=== PATIENT | female | born 1990 | race African-American/Black ===

== ENCOUNTER 2025-06-16 06:59 | Emergency (ER) | payer OTHER, SELFPAY ==
--- NOTE | ~2025-06-16 | XR_ITS ---
Examination: XR chest 1V portable Clinical History: cp Comparison: None Technique: Portable AP Findings: Heart size enlarged. Lungs clear. No acute bony abnormality. IMPRESSION: 1. Cardiac silhouette enlarged. 2. Lungs clear. Reviewed, dictated and finalized at location R. [facility] [employer]
--- NOTE | 2025-06-16 07:04 | ECG_ITS ---
Test Date: 2025-06-16 07:09:34 Measurements Intervals [place] Rate: 103 P: 50 FL: 179 QRS: 28 QRSD: 102 T: 7 QT: 334 QTc: 438 Interpretive Statements SINUS TACHYCARDIA ABNORMAL RHYTHM ECG No previous ECG available for comparison Electronically Signed On 06-16-2025 17:55:31 METAPHYSICIST by Damon Castillo M.D.
[2025-06-16 07:05] VITALS: BP 158/93; PULSE 116; RESP 17; TEMP 36.9; O2SAT 100
[2025-06-16 07:10] VITALS: PULSE 116
--- NOTE | 2025-06-16 07:14 | ED_ITS ---
HPI - Chest Pain General Chief Complaint: Chest Pain Stated Complaint: CHEST PAIN X3D Time Seen by Provider: 06/16/25 07:06 History of Present Illness HPI narrative: Pt presents with pressure in anterior chest since about 0300. Pt says she had had intermittent pain in her anterior chest for 3 days. Pt has had some nausea associated she believes with starting monjaro. Pt denies SOB. POt denies precip or relieving factors. Pt says the discomfort is 1-2/10 now. Related Data Allergies Allergy/AdvReac Type Severity Reaction Status Date / Time No Known Allergies Allergy Verified 06/16/25 07:00 Review of Systems 2 Review of Systems: All systems reviewed & are unremarkable except as noted in HPI and below Exam 2 Const: General: healthy appearing, no acute distress and alert Nutritional Appearance: obese Orientation/consciousness: patient oriented x3 L imitations: no limitations Neck: Neck: normal visual inspection Chest: Chest palpation & inspection: tenderness costochondral junction Resp: Effort & Inspection: normal respiratory effort Auscultation: clear to auscultation bilaterally Cardio: Rate: tachycardic Rhythm: regular rhythm GI: GI Palp: Yes Soft to palpation and No Tenderness to palpation present (GI) Auscultation: normal bowel sounds Skin: General skin exam: normal color Rashes: no rashes Wounds: no wounds Neuro: General: patient oriented x3, moves all extremities, no meningeal signs and no focal motor deficits Extrem: General: normal to inspection and no clubbing, cyanosis or edema Psych: Mental Status: mental status grossly normal Affect: normal affect Attitude: cooperative Course Vital Signs Vital signs: Vital Signs Temperature 98.4 F 06/16/25 07:05 Pulse Rate 116 H 06/16/25 07:05 Respiratory Rate 17 06/16/25 07:05 Blood Pressure 158/93 H 06/16/25 07:05 Pulse Oximetry 100 06/16/25 07:05 Oxygen Delivery Room Air 06/16/25 07:05 Temperature 98.4 F 06/16/25 07:05 Pulse Rate 84 06/16/25 09:33 Respiratory Rate 16 06/16/25 09:33 Blood Pressure 142/80 H 06/16/25 09:33 Pulse Oximetry 100 06/16/25 09:33 Oxygen Delivery Room Air 06/16/25 07:15 MDM - Chest Pain MDM Narrative Medical decision making narrative: since pain present for 4 hours should be able to rule out acs with 1 trop. ekg unremarkable. will give a dose of oradol for pain which is reproducible with palpation. ekg and trop and labs and cxr unremarkable./ Pt got some relief from toradol. home on naprosyn Differential Diagnosis Differential diagnosis: Likely pneumothorax, unstable angina pectoris, atypical chest pain, st elevation myocardial infarction, costochondritis and biliary colic Lab Data 06/16/25 07:41 06/16/25 07:41 Labs: Lab Results 06/16/25 Range/Units 07:41 WBC 7.6 (4.5-10.0) K/mm3 RBC 4.93 (4.2-5.4) M/mm3 Hgb 13.2 (12.0-15.0) g/dL Hct 41.0 (37.0-47.0) % MCV 83.2 (80-100) fl MCH 26.8 (26-34) pg MCHC 32.2 (32-36) g/dl RDW 13.7 (11.5-14.5) % Plt Count 245 (150-375) k/mm3 MPV 9.8 (7.4-10.4) fl Immature Gran % (Auto) 4.2 H (0-0.5) % Neut % (Auto) 57.6 (45.5-73.1) % Lymph % (Auto) 32.1 (18.3-44.2) % [place] % (Auto) 5.3 (2.6-8.5) % Eos % (Auto) 0.4 (0-4.4) % Baso % (Auto) 0.4 (0.2-1.2) % Lymph # (Auto) 2.44 (0.9-3.2) K/mm3 [place] # (Auto) 0.4 (0.1-0.6) K/mm3 Eos # (Auto) 0.0 (0-0.3) K/mm3 Baso # (Auto) 0.0 (0.0-0.1) K/mm3 Abs Immat Gran (auto) 0.32 H (0.00-0.031) K/mm3 Absolute Neuts (auto) 4.4 (1.3-6.7) K/mm3 Absolute Nucleated RBC 0.000 (0.0-0.012) K/mm3 Nucleated RBC % 0.0 (0.0-0.2) % PT 14.3 (11.1-14.7) Seconds INR 1.1 APTT 24.6 (22.3-36.8) Seconds Sodium 135 L (137-145) mmol/L Potassium 4.4 (3.4-5.0) mmol/L Chloride 103 (98-107) mmol/L Carbon Dioxide 25 (22-30) mmol/L Anion Gap 7 (4-12) mmol/L BUN 11 (7-17) mg/dL Creatinine 0.76 (0.7-1.0) mg/dL Estim Creat Clear Calc 146 ml/min Estimated GFR > 60 (59 - ) Glucose 107 (65-110) mg/dL Calcium 9.0 (8.4-10.2) mg/dL Total Bilirubin 0.6 (0.2-1.3) mg/dL AST 37 H (14-36) U/L ALT 25 (6-35) U/L Alkaline Phosphatase 74 (38-126) U/L Troponin I < 0.012 (0.000-0.034) ng/mL Total Protein 8.4 H (6.3-8.2) g/dL Albumin 4.5 (3.5-5.1) g/dL Lipase 86 (23-300) U/L Imaging Data Attestation: I personally reviewed and interpreted this imaging study as follows: My impression: nad Radiologist's impression: [place] [address] [place] [address] XRay Report Signed Patient: Bienvenido Roy : 1990 MR#: [id number] Age: 35 Acct:[id number] Loc: [facility] ADM Date: 06/16/[address]: Ordering Physician: Angie Paz III, DO Date of Service: 06/16/25 Procedure(s): XR chest 1V portable Accession Number(s): [id number] cc: Angie Paz III, ~ Examination: XR chest 1V portable Clinical History: cp Comparison: None Technique: Portable AP Findings: Heart size enlarged. Lungs clear. No acute bony abnormality. IMPRESSION: 1. Cardiac silhouette enlarged. 2. Lungs clear. Reviewed, dictated and finalized at location R. CURIST Please be advised this is a medical document. It is intended for [id number] communication. It is written in medical language and may contain unfamiliar abbreviations or verbiage. Medical documents are intended to carry relevant information, facts as evident, and the clinical opinion of the practitioner at the time of the encounter. This report may have been done utilizing a voice recognition system. Attempts have been made to correct errors. However, there may be uncorrected grammatical, spelling, and recognition errors present. The file time of this note does not necessarily represent the time of service. Dictated By: Jorge A Stock MD 06/16/25 0727 Signed By: <Electronically signed by Jorge A Stock MD in [place]> ECG Data EKG #1: Attestation: I personally reviewed and interpreted this ECG as follows: Interpretation: nl axis no st or t wave changes EKG Interpretation: tachycardia (rate 103) Discharge Plan Discharge Clinical Impression: Costalchondritis Patient Disposition: Home Condition: Improved Instructions: Antibiotic Form, Chest Wall Pain (ED) Patient Language: [place] Prescriptions: New naproxen [Naprosyn] 500 mg tablet 500 mg PO BID Qty: 20 0RF Follow-up/Referrals: UNKNOWN,DOCTOR [Non-Staff] Quality HEART score for chest pain patients History: slightly suspicious ECG: normal Age: < or = to 45 years Risk factors: 1 or 2 risk factors Troponin: < or = to 1x normal limit Heart score: 1
[2025-06-16 07:15] VITALS: O2SAT 100
[2025-06-16 07:38] VITALS: BP 158/93; PULSE 88; RESP 12; O2SAT 100
[2025-06-16] MEDS: KETOROLAC 15 MG/ML VIAL (*BKC) IV PUSH (07:44)
[2025-06-16 07:49] LABS: Hematocrit 41.0 % (37.0-47.0); Hemoglobin 13.2 g/dL (12.0-15.0); Immature Granulocyte Percent A 4.2 % (0-0.5); Lymphocytes Absolute Auto 2.44 K/mm3 (0.9-3.2); Mean Corpuscular HGB Conc 32.2 g/dl (32-36); Mean Corpuscular Hemoglobin 26.8 pg (26-34); Mean Corpuscular Volume 83.2 fl (80-100); Nucleated Red Blood Cells Absolute Auto 0.000 K/mm3 (0.0-0.012); Nucleated Red Blood Cells Perc 0.0 % (0.0-0.2); Platelet Count Result 245 k/mm3 (150-375); Red Blood Count 4.93 M/mm3 (4.2-5.4); White Blood Count 7.6 K/mm3 (4.5-10.0)
[2025-06-16 08:04] LABS: INR 1.1; Prothrombin Time 14.3 Seconds (11.1-14.7)
[2025-06-16 08:05] LABS: Alanine Aminotransferase 25 U/L (6-35); Albumin Level 4.5 g/dL (3.5-5.1); Alkaline Phosphatase 74 U/L (38-126); Anion Gap 7 mmol/L (4-12); Aspartate Amino Transferase 37 U/L (14-36); Bilirubin,Total 0.6 mg/dL (0.2-1.3); Blood Urea Nitrogen 11 mg/dL (7-17); Calcium 9.0 mg/dL (8.4-10.2); Carbon Dioxide 25 mmol/L (22-30); Chloride 103 mmol/L (98-107); Estimated CRCL calculation 146 ml/min; Estimated Glomerular Filt Rate > 60; Glucose 107 mg/dL (65-110); Lipase 86 U/L (23-300); Potassium 4.4 mmol/L (3.4-5.0); Sodium 135 mmol/L (137-145); Total Protein 8.4 g/dL (6.3-8.2)
[2025-06-16 08:06] LABS: Partial Thromboplastin Time 24.6 Seconds (22.3-36.8)
[2025-06-16 08:18] LABS: Troponin I < 0.012 ng/mL (0.000-0.034)
[2025-06-16 09:33] VITALS: BP 142/80; PULSE 84; RESP 16; O2SAT 100
== END 2025-06-16 09:33 | disposition home or self-care (01) ==
PROVIDERS: Emergency Provider Emergency Medicine; PCP Nurse Practitioner
DX: M94.0 Chondrocostal junction syndrome [Tietze] (principal); R00.0 Tachycardia, unspecified
CPT/HCPCS: 36415; 71045; 80053; 83690; 84484; 85025; 85610; 85730; 93005; 96374; 99284; J1885